=== PATIENT | male | born 1940 | race Caucasian/White ===

== ENCOUNTER 2018-09-03 13:12 | Day surgery (SDC) | payer MEDICARE, OTHER ==
[~2018-09-03] VITALS: Ht 170.2 cm; Wt 99.8 kg
[~2018-09-03 13:12] MED LIST: ALLO100; ALLO100 PO; ASCO500 PO; ASPI325 PO; ASPI325EC PO; ASPI81EC PO; ATOR40TA PO; Adult Low Dose81 MG PO; B Complex #11 EACH PO; BRILINTA; CARV6.25 PO; CHOL10002 PO; CLOP75 PO; Calcium Citrat250 MG PO; Coreg12.5 MG PO; DHEA25 MG PO; HYDACE5 PO; HYDCHL25; HYDCOR10; HYDMOR2 PO; IRON150C PO; KETO10 PO; LEVFLO500 PO; LOSA50; LOSA50 PO; MULTI VITAMIN1 EACH PO; MULVITMIND PO; MULVITMINF PO; OLME20-12. PO; OLME5TAB PO; OMEP20ER PO; POTCHL20ER; PROM25 PO; Percocet 5-3251 EACH PO; RANO500T PO; RXHYDACE PO; RXHYDMOR2 PO; SENNA-TIME S T1 EACH PO; SPIHYD PO; SPIR25 PO; Senna-Gen8.6 MG PO; Synthroid25 MCG PO; TAMS.4ER PO; VITAMENS; VITAMIN C500 M1 PO
== END 2018-09-03 15:53 | disposition home or self-care (01) ==
LOC: ORSCSDS 13:12
PROVIDERS: Internal Medicine Gastroenterology
PROC: 0DBL8ZX Excision of Transverse Colon, Via Natural or Artificial Opening Endoscopic, Diagnostic (ICD-10-PCS; principal; 2018-09-03 14:45)
DX: Z12.11 Encounter for screening for malignant neoplasm of colon (principal); Z86.010 Personal history of colon polyps; D12.3 Benign neoplasm of transverse colon; K57.30 Diverticulosis of large intestine without perforation or abscess without bleeding; E66.9 Obesity, unspecified; Z68.34 Body mass index [BMI] 34.0-34.9, adult; Z79.01 Long term (current) use of anticoagulants; Z79.899 Other long term (current) drug therapy
CPT/HCPCS: 88305; J2704; J7120

== ENCOUNTER 2019-03-09 00:39 | Observation (INO) | payer MEDICARE, OTHER ==
[~2019-03-09] VITALS: Ht 170.2 cm; Wt 96.4 kg
[~2019-03-09 00:39] MED LIST changes: -CHOL10002 PO; +VITAMIN D35000 UNI2 PO
[2019-03-09] MEDS ORDERED: MONT10T PO (01:13)
[2019-03-09] MEDS ORDERED: DOXY100 PO (01:14)
[2019-03-09] MEDS ORDERED: BENZ100A PO (01:15)
[2019-03-09 01:53] LABS: BASOPHILS ABSOLUTE AUTO 0.05 K/mm3 (0.00-0.23); BASOPHILS PERCENT AUTO 1 % (0-2); EOSINOPHILS PERCENT AUTO 4 % (0-6); Hematocrit 45.3 % (37.0-53.0); Hemoglobin 15.2 g/dL (13.5-17.5); IMMATURE GRAN ABSOLUTE AUTO 0.04 K/mm3 (0.00-0.10); IMMATURE GRAN PERCENT AUTO 1 % (0-1); LYMPHOCYTES ABSOLUTE AUTO 1.05 K/mm3 (0.84-5.20); LYMPHOCYTES PERCENT AUTO 12 % (21-46); MONOCYTES ABSOLUTE AUTO 1.15 K/mm3 (0.16-1.47); MONOCYTES PERCENT AUTO 13 % (4-13); Mean Corpuscular HGB 32.5 pg (26.0-34.0); Mean Corpuscular HGB Conc 33.6 g/dL (31.5-36.5); Mean Corpuscular Volume 97 fL (80-100); Mean Platelet Volume 10.1 fL (9.1-12.4); NEUTROPHILS ABSOLUTE AUTO 6.01 K/mm3 (1.96-9.15); NEUTROPHILS PERCENT AUTO 70 % (41-73); Platelet Count 210 K/mm3 (150-400); RDW Coefficient Variation 12.1 % (11.7-14.2); RDW Standard Deviation 43.7 fL (35.1-46.3); Red Blood Cell Count 4.68 M/mm3 (4.30-5.90)
[2019-03-09 02:13] LABS: Alanine Aminotransfer (ALT/SGP 29 U/L (12-78); Albumin, Blood 3.1 g/dL (3.4-5.0); Albumin/Globulin Ratio 0.8 (0.8-1.8); Alk Phos 62 U/L (50-136); Anion Gap 7 mmol/L (6-16); Aspartate Aminotrans (AST/SGOT 22 U/L (12-37); Bilirubin, Total 0.4 mg/dL (0.1-1.0); Blood Urea Nitrogen 20 mg/dL (8-24); Bun/Creatinine Ratio 18.2 (12.0-20.0); CO2, Blood 26 mmol/L (21-32); Calcium, Blood 8.3 mg/dL (8.5-10.1); Chloride, Blood 109 mmol/L (98-108); Globulin, Blood 3.7 g/dL (2.2-4.0); Glomerular Filtration Rate >60 (60-); Glucose, Blood 110 mg/dL (70-99); Potassium, Blood 4.3 mmol/L (3.5-5.5); Sodium, Blood 142 mmol/L (136-145); Total Protein, Blood 6.8 g/dL (6.4-8.2); Troponin I <0.015 ng/mL (0.000-0.040)
[2019-03-09] MEDS ORDERED: TESTONE CI200 MG/1 M IM (04:45)
[2019-03-09] MEDS ORDERED: ANAS1 PO (04:46)
--- NOTE | 2019-03-09 05:34 | NUR ---
SHIFT SUMMARY PT'S LS CLEAR T/O AND BT + X4. ROMEO ADMITTED FOR CHEST PAIN. HE STATED HIS CHEST PAIN MUCH IMPROVED AFTER NITRO AND MORPHINE IN THE ER. ALSO VERY SLEEPY AND APPEARS TO BE SLEEPING SINCE GETTING COMFORTABLE AND LEFT ALONE. LEFT TO GO HOME BUT WILL BE BACK LATER TODAY.
--- NOTE | 2019-03-09 18:40 | NUR ---
SHIFT SUMMARY PT INDEPENDENT IN TO BATHROOM. RESTING PORTION OF STRESS TEST COMPLETED TODAY. EXERTIONAL PORTION TO BE COMPLETED TOMORROW AND NO MORE CAFFEINE AFTER MIDNIGHT TONIGHT. WILL BE NOTIFIED OF TIME TOMORROW. FAMILY HERE MOST OF THE DAY. PT NAPPED BETWEEN LUNCH AND TESTING.
--- NOTE | 2019-03-10 05:34 | NUR ---
SHIFT SUMMARY NO ACUTE CHANGES TONIGHT. PT NPO/WATER AND CHIPS ONLY SINCE MIDNIGHT FOR 2NS PART STRESS TEST TODAY. DENIES CHEST PAIN OR DISCOMFORT. TROPONINS NEG. TELE IN PLACE; NSR @ 63. A&OX4, INDEPENDENT IN . WILL CONT TO MONITOR AND PROVIDE CARE UNTIL PRESUMED BY ONCOMING RN.
[2019-03-10] MEDS ORDERED: NITR.4SL SL (16:10)
--- NOTE | 2019-03-10 16:45 | NUR ---
DISCHARGE INSTRUCTIONS COMPLETED AND DISCUSSED WITH PT EXPRESSING UNDERSTANDING. SCRIPT FOR NITRO FAXED TO [facility]. TO [facility] VIA W/C.
== END 2019-03-10 16:25 | disposition home or self-care (01) ==
LOC: ER 00:39 → MEDS 00:40
PROVIDERS: Emergency Medicine; ADMIT Hospitalist
DX: R07.9 Chest pain, unspecified (principal); I25.10 Atherosclerotic heart disease of native coronary artery without angina pectoris; I11.0 Hypertensive heart disease with heart failure; I50.22 Chronic systolic (congestive) heart failure; I25.5 Ischemic cardiomyopathy; E78.5 Hyperlipidemia, unspecified; K21.9 Gastro-esophageal reflux disease without esophagitis; E03.9 Hypothyroidism, unspecified; I73.9 Peripheral vascular disease, unspecified; Z88.0 Allergy status to penicillin; Z88.8 Allergy status to other drugs, medicaments and biological substances; Z79.82 Long term (current) use of aspirin; Z79.02 Long term (current) use of antithrombotics/antiplatelets; Z79.52 Long term (current) use of systemic steroids; Z79.2 Long term (current) use of antibiotics; Z79.899 Other long term (current) drug therapy; Z95.1 Presence of aortocoronary bypass graft; Z95.5 Presence of coronary angioplasty implant and graft
CPT/HCPCS: 36415; 71046; 78452; 80053; 83880; 84484; 85025; 93005; 93010; 93017; 96372; 96374; 99285-25; A9500; G0378; J0706; J1650; J2270; J2785

== ENCOUNTER 2019-04-01 02:00 | Inpatient (IN) | payer MEDICARE, OTHER ==
[~2019-04-01] VITALS: Ht 172.7 cm; Wt 98.2 kg
[~2019-04-01 02:00] MED LIST changes: +ANAS1 PO; +BENZ100A PO; +DOXY100 PO; +MONT10T PO; +NITR.4SL SL; +TESTONE CI200 MG/1 M IM
[2019-04-01] MEDS ORDERED: FAMO20 PO (02:31)
[2019-04-01] MEDS ORDERED: Depo-Testos200 MG/ML IM (02:34)
[2019-04-01 02:42] LABS: BASOPHILS ABSOLUTE AUTO 0.03 K/mm3 (0.00-0.23); BASOPHILS PERCENT AUTO 0 % (0-2); EOSINOPHILS ABSOLUTE AUTO 0.18 K/mm3 (0.00-0.68); EOSINOPHILS PERCENT AUTO 2 % (0-6); Hematocrit 44.7 % (37.0-53.0); Hemoglobin 15.4 g/dL (13.5-17.5); IMMATURE GRAN ABSOLUTE AUTO 0.05 K/mm3 (0.00-0.10); IMMATURE GRAN PERCENT AUTO 0 % (0-1); LYMPHOCYTES ABSOLUTE AUTO 0.92 K/mm3 (0.84-5.20); LYMPHOCYTES PERCENT AUTO 8 % (21-46); MONOCYTES ABSOLUTE AUTO 2.05 K/mm3 (0.16-1.47); MONOCYTES PERCENT AUTO 18 % (4-13); Mean Corpuscular HGB 32.8 pg (26.0-34.0); Mean Corpuscular HGB Conc 34.5 g/dL (31.5-36.5); Mean Corpuscular Volume 95 fL (80-100); NEUTROPHILS ABSOLUTE AUTO 8.26 K/mm3 (1.96-9.15); NEUTROPHILS PERCENT AUTO 72 % (41-73); Platelet Count 142 K/mm3 (150-400); RDW Coefficient Variation 12.9 % (11.7-14.2); RDW Standard Deviation 45.2 fL (35.1-46.3); Red Blood Cell Count 4.69 M/mm3 (4.30-5.90); White Blood Cell Count 11.49 K/mm3 (4.00-11.30)
[2019-04-01 03:03] LABS: Alanine Aminotransfer (ALT/SGP 17 U/L (12-78); Albumin, Blood 3.1 g/dL (3.4-5.0); Albumin/Globulin Ratio 0.9 (0.8-1.8); Alk Phos 58 U/L (50-136); Anion Gap 6 mmol/L (6-16); Aspartate Aminotrans (AST/SGOT 20 U/L (12-37); Bilirubin, Total 0.5 mg/dL (0.1-1.0); Blood Urea Nitrogen 20 mg/dL (8-24); Bun/Creatinine Ratio 17.2 (12.0-20.0); CO2, Blood 26 mmol/L (21-32); Calcium, Blood 8.1 mg/dL (8.5-10.1); Chloride, Blood 106 mmol/L (98-108); Creatinine, Blood 1.16 mg/dL (0.60-1.20); Globulin, Blood 3.5 g/dL (2.2-4.0); Glomerular Filtration Rate >60 (60-); Glucose, Blood 140 mg/dL (70-99); Potassium, Blood 4.3 mmol/L (3.5-5.5); Sodium, Blood 138 mmol/L (136-145); Total Protein, Blood 6.6 g/dL (6.4-8.2); Troponin I 0.023 ng/mL (0.000-0.040)
--- NOTE | 2019-04-01 06:17 | NUR ---
ARRIVAL PT ARRIVED TO UNIT VIA GURNEY FROM ER. TRANSFERED SELF TO BED IND. DENIES PAIN AT THIS TIME IN RUQ. STATES SOME PAIN WHEN PALPATED FIRMLY. PT REPORTS BEING NPO SINCE 1800 ON 03/31/19. NPO SINCE ARRIVAL TO UNIT. PT AND SPOUSE ORIENTED TO UNIT. CALL LIGHT IN REACH.
--- NOTE | 2019-04-01 11:40 | NUR ---
PT TO IMAGING VIA W/C
--- NOTE | 2019-04-01 15:15 | NUR ---
eCHOCARDIOGRAM USING O.50ML OF DEFINITY CONTRAST PERFORMED.
--- NOTE | 2019-04-01 16:25 | NUR ---
SHIFT SUMMARY PT STRUGGLED WITH PAIN MANAGEMENT PRIOR TO HIDA SCAN DUE TO NO NARCOTICS. POST SCAN, PT GIVEN IV MORPHINE WITH MINIMAL RELIEF. MD CALLED, NEW ORDERS RECIEVED AND PAIN IS AT A MANAGEABLE LEVEL NOW. ECHO COMPLETED, AWAITING RESULTS SO CLEAR LIQUIDS STARTED.
[2019-04-02 04:06] LABS: BASOPHILS ABSOLUTE AUTO 0.04 K/mm3 (0.00-0.23); BASOPHILS PERCENT AUTO 0 % (0-2); EOSINOPHILS ABSOLUTE AUTO 0.07 K/mm3 (0.00-0.68); EOSINOPHILS PERCENT AUTO 1 % (0-6); Hematocrit 47.7 % (37.0-53.0); Hemoglobin 15.7 g/dL (13.5-17.5); IMMATURE GRAN ABSOLUTE AUTO 0.08 K/mm3 (0.00-0.10); IMMATURE GRAN PERCENT AUTO 1 % (0-1); LYMPHOCYTES ABSOLUTE AUTO 0.81 K/mm3 (0.84-5.20); LYMPHOCYTES PERCENT AUTO 6 % (21-46); MONOCYTES ABSOLUTE AUTO 2.32 K/mm3 (0.16-1.47); MONOCYTES PERCENT AUTO 16 % (4-13); Mean Corpuscular HGB 32.1 pg (26.0-34.0); Mean Corpuscular HGB Conc 32.9 g/dL (31.5-36.5); Mean Platelet Volume 11.1 fL (9.1-12.4); NEUTROPHILS ABSOLUTE AUTO 10.97 K/mm3 (1.96-9.15); NEUTROPHILS PERCENT AUTO 77 % (41-73); Platelet Count 140 K/mm3 (150-400); RDW Standard Deviation 45.9 fL (35.1-46.3); Red Blood Cell Count 4.89 M/mm3 (4.30-5.90); White Blood Cell Count 14.29 K/mm3 (4.00-11.30)
[2019-04-02 04:07] LABS: Mean Corpuscular Volume 98 fL (80-100)
--- NOTE | 2019-04-02 04:30 | NUR ---
SHIFT SUMMARY PT IS A/O X4 AND IND. IN ROOM. HAS BEEN NPO AFTER MIDNIGHT. HE HAS BEEN RESTING WITH EYES CLOSED MOST OF THE SHIFT. PT IS VOIDING. REPORTS ABD TENDERNESS WITH PALPATION. PAIN MANAGED WITH IV PAIN MED PER ORDERS. ASSISTED WITH ADL'S PRN.
[2019-04-02 04:32] LABS: Alanine Aminotransfer (ALT/SGP 14 U/L (12-78); Albumin, Blood 2.9 g/dL (3.4-5.0); Albumin/Globulin Ratio 0.9 (0.8-1.8); Alk Phos 45 U/L (50-136); Anion Gap 9 mmol/L (6-16); Aspartate Aminotrans (AST/SGOT 10 U/L (12-37); Blood Urea Nitrogen 16 mg/dL (8-24); CO2, Blood 24 mmol/L (21-32); Calcium, Blood 7.8 mg/dL (8.5-10.1); Chloride, Blood 107 mmol/L (98-108); Creatinine, Blood 1.14 mg/dL (0.60-1.20); Globulin, Blood 3.2 g/dL (2.2-4.0); Glomerular Filtration Rate >60 (60-); Glucose, Blood 102 mg/dL (70-99); Potassium, Blood 4.1 mmol/L (3.5-5.5); Sodium, Blood 140 mmol/L (136-145); Total Protein, Blood 6.1 g/dL (6.4-8.2)
--- NOTE | 2019-04-02 11:11 | NUR ---
Patient up to Ambulate independently. Gait steady. Surgical site prepped with 2% Chlorhexidine cloth wipe. History, Chart, Medications and Allergies reviewed before start of procedure.Lungs clear T/O to Auscultation. Patient confirms NPO status and agrees with scheduled surgery. ALL BELONINGS LEFT INTO ROOM.
--- NOTE | 2019-04-02 13:30 | NUR ---
PATIENT RETURNED TO ROOM FROM PACU. AWAKE, SBA TO TRANSFER FROM [facility] TO BED. VSS. ABD WITH GAUZE DRESSINGS X 3. KARAN DRAIN WITH SCANT AMOUNT SS FLUID R ABD. PATIENT DENIES PAIN, NAUSEA. LS CLEAR, HRR. PAS IN PLACE. FAMILY AT BEDSIDE. CONT TO MONITOR.
--- NOTE | 2019-04-02 15:30 | NUR ---
VSS. PATIENT DOZING, AWAKENS WITH CARE. CONT DENY PAIN. TAKING CL W/O C/O NAUSEA. IS GIVEN WITH INSTRUCTIONS. CONT TO MONITOR.
--- NOTE | 2019-04-02 18:21 | NUR ---
SHIFT SUMMARY PATIENT CONT DENY NEED FOR PAIN MED. DRESSING TO KARAN DRAIN CHANGED. KARAN DRAIN WITH SMALL AMOUNT SS FLUID. TAKING PO W/O C/O. HAS DENIED NEED TO URINATE, ENCOURAGED TO CALL FOR ASSIST BEFORE GETTING OOB. AT BEDSIDE. CONT TO MONITOR. VSS.
--- NOTE | 2019-04-03 03:50 | NUR ---
SHIFT SUMMARY PT RESTED QUIETLY IN BED T/O SHIFT W/OUT ANY ACUTE CHANGES. MEPILEX TO BUTTOCKS C/D/I. ASSISTED WITH ADL'S NEEDED. CURRENTLY RESTING IN BED, HAS CPAP IN PLACE W/ SPO2 AT 93% AND CALL LIGHT WITHIN REACH. PLAN FOR D/C DURING DAY SHIFT TODAY. WILL CONT. TO MONITOR AND GIVE REPORT TO ONCOMING RN AT SHIFT CHANGE.
--- NOTE | 2019-04-03 04:24 | NUR ---
SHIFT ASSESSMENT POD 1 S/P CHOLECTOMY, A/0X4 WITH VSS. KARAN DRAIN IN PLACE AND DRAINING SS. TOLERATING REGULAR DIET. UP TO EDGE OF BED AND USING URINAL. PAIN MANAGED WITH 1 TAB PO MEDICATION. CURRENTLY RESTING IN BED WITH CALL LIGHT IN REACH. WILL CONT. TO MONITOR AND PLAN TO GIVE REPORT TO ONCOMING RN AT SHIFT CHANGE.
[2019-04-03] MEDS ORDERED: Augmentin 875-1 EACH PO (11:14)
[2019-04-03] MEDS ORDERED: ROXYBOND5 MG PO (13:14)
--- NOTE | 2019-04-03 13:30 | NUR ---
DISCHARGE SUMMARY PT A&OX4, VSS, POD1 LAP BELLA, 3 LAP SITES CDI. PAIN MANAGED WITH 5 MG OXYCODONE PRN. KATIE PO, DENIES N&V. VOIDING WELL. DISCHARGE INSTRUCTIONS PROVIDED. PT REP UNDERSTANDING THOSE INSTRUCTIONS INCLUDING FU WITH SURGEON IN 2 WEEKS, FU WITH PCP IN 1 WK, [facility] WILL COME OFF ON THEIR OWN IN 7-10 DAYS OR [facility] WILL REMOVE AT FU APPT, OK TO SHOWER, NO TUB/JACUZZI/SWIMMING, ABX BID FOR 10 TABS FAXED TO [facility], SCRIPT FOR OXY PROVIDED TO PT.
== END 2019-04-03 13:48 | disposition home or self-care (01) | DRG 418 ==
LOC: ER 02:00 → SURS 05:46
PROVIDERS: Emergency Medicine; Surgery; ADMIT Hospitalist
PROC: 0FT44ZZ Resection of Gallbladder, Percutaneous Endoscopic Approach (ICD-10-PCS; principal; 2019-04-02 11:30)
DX: K80.00 Calculus of gallbladder with acute cholecystitis without obstruction (principal); I50.22 Chronic systolic (congestive) heart failure; I25.10 Atherosclerotic heart disease of native coronary artery without angina pectoris; I11.0 Hypertensive heart disease with heart failure; E03.9 Hypothyroidism, unspecified; E78.5 Hyperlipidemia, unspecified; K21.9 Gastro-esophageal reflux disease without esophagitis; Z95.1 Presence of aortocoronary bypass graft; Z95.5 Presence of coronary angioplasty implant and graft; Z79.82 Long term (current) use of aspirin; Z79.02 Long term (current) use of antithrombotics/antiplatelets; Z88.0 Allergy status to penicillin
CPT/HCPCS: 36415; 76705; 78226; 80053; 83690; 84484; 85025; 88304; 93005; 93010; 96365; 96375; 99285-25; A9270; A9270-GY; A9537; C1729; C8929; J0330; J0696; J0744; J1100; J1170; J2250; J2270; J2370; J2405; J2704; J3010; J7030; J7120; Q9957

== ENCOUNTER 2023-05-19 17:49 | Emergency (ER) | payer MEDICARE, OTHER ==
[~2023-05-19] VITALS: Ht 167.6 cm; Wt 90.7 kg
[~2023-05-19 17:49] MED LIST changes: +Augmentin 875-1 EACH PO; +Depo-Testos200 MG/ML IM; +FAMO20 PO; +ROXYBOND5 MG PO; -VITAMIN C500 M1 PO; +VITAMIN D310 MC4 PO; -VITAMIN D35000 UNI2 PO
[2023-05-19] MEDS ORDERED: Acetaminophen 325 MG TABLET PO ONE (18:55)
[2023-05-19] MEDS ORDERED: Lactated Ringer's 1,000 ML IV SCH (18:55)
[2023-05-19 19:00] LABS: BASOPHILS ABSOLUTE AUTO 0.04 K/mm3 (0.00-0.23); BASOPHILS PERCENT AUTO 0 % (0-2); EOSINOPHILS PERCENT AUTO 0 % (0-6); Hematocrit 39.5 % (37.0-53.0); Hemoglobin 13.8 g/dL (13.5-17.5); IMMATURE GRAN ABSOLUTE AUTO 0.14 K/mm3 (0.00-0.10); IMMATURE GRAN PERCENT AUTO 1 % (0-1); LYMPHOCYTES ABSOLUTE AUTO 0.42 K/mm3 (0.84-5.20); LYMPHOCYTES PERCENT AUTO 3 % (21-46); MONOCYTES ABSOLUTE AUTO 2.09 K/mm3 (0.16-1.47); MONOCYTES PERCENT AUTO 13 % (4-13); Mean Corpuscular HGB 32.2 pg (26.0-34.0); Mean Corpuscular HGB Conc 34.9 g/dL (31.5-36.5); Mean Corpuscular Volume 92 fL (80-100); Mean Platelet Volume 12.6 fL (9.1-12.4); NEUTROPHILS ABSOLUTE AUTO 13.98 K/mm3 (1.96-9.15); NEUTROPHILS PERCENT AUTO 84 % (41-73); Platelet Count 106 K/mm3 (150-400); RDW Coefficient Variation 12.8 % (11.7-14.2); RDW Standard Deviation 43.5 fL (35.1-46.3); Red Blood Cell Count 4.29 M/mm3 (4.30-5.90); White Blood Cell Count 16.67 K/mm3 (4.00-11.30)
[2023-05-19 19:14] LABS: Albumin, Blood 3.3 g/dL (3.4-5.0); Albumin/Globulin Ratio 1.1 (0.8-1.8); Bilirubin, Total 1.6 mg/dL (0.1-1.0); Bun/Creatinine Ratio 20.1 (12.0-20.0); Calcium, Blood 8.7 mg/dL (8.5-10.1); Creatinine, Blood 1.89 mg/dL (0.60-1.20); Globulin, Blood 3.1 g/dL (2.2-4.0); Magnesium, Blood 1.8 mg/dL (1.6-2.4); Potassium, Blood 4.1 mmol/L (3.5-5.5); Total Protein, Blood 6.4 g/dL (6.4-8.2)
[2023-05-19 19:19] LABS: Influenza A, PCR NEGATIVE (NEGATIVE); Influenza B, PCR NEGATIVE (NEGATIVE); Resp Syncytial Virus, PCR NEGATIVE (NEGATIVE); SARS-Cov-2 (COVID-19) PCR, MMC NEGATIVE (NEGATIVE)
[2023-05-19 20:11] LABS: Source, Urine Clean Catch
[2023-05-19 20:32] LABS: Blood, Urine 4+ (Neg); Glucose Qualitative, Urine Neg (Neg); Ketones, Urine 1+ (Neg); Leukocyte Esterase, Urine 3+ (Neg); Nitrite, Urine Neg (Neg); Protein, Urine 3+ (Neg); Specific Gravity, Urine 1.025 (1.003-1.022); Urobilinogen, Urine NORM (Normal)
[2023-05-19 20:33] LABS: Bilirubin, Urine 1+ (Neg)
[2023-05-19 20:34] LABS: Appearance, Urine Turbid (Clear); Color, Urine Yellow (P-Yellow)
[2023-05-19 20:42] LABS: Bacteria Many /hpf; Squamous Epithelial Cells Rare /hpf (Few); White Blood Cells, Urine TNTC /hpf (0-5)
[2023-05-19] MEDS ORDERED: CefTRIAXone Sodium 1,000 MG in NS 50 ML IV ONE (20:50)
[2023-05-19 23:15] VITALS: BP 115/52
[2023-05-19] MEDS ORDERED: CEFP200 PO (23:16)
[2023-05-19] MEDS ORDERED: ONDA4ODT MM (23:17)
== END 2023-05-19 23:30 | disposition home or self-care (01) ==
LOC: ER 17:49
PROVIDERS: Student in an Organized Health Care Education/Training Program
DX: A41.9 Sepsis, unspecified organism (principal); N39.0 Urinary tract infection, site not specified; N17.9 Acute kidney failure, unspecified; E86.0 Dehydration; I95.9 Hypotension, unspecified; I25.2 Old myocardial infarction; Z88.0 Allergy status to penicillin; Z88.8 Allergy status to other drugs, medicaments and biological substances; Z79.890 Hormone replacement therapy; Z79.899 Other long term (current) drug therapy; Z79.02 Long term (current) use of antithrombotics/antiplatelets; Z79.82 Long term (current) use of aspirin
CPT/HCPCS: 0241U; 36415; 71045; 80053; 81001; 83605; 83735; 84145; 85025; 93005; 93010; 96361; 96365; 99285-25; A9270; J0696; J7120

== ENCOUNTER → 2025-02-12 | Outpatient (CLI) | payer MEDICARE, OTHER ==
[~2025-02-12] MED LIST changes: +CEFP200 PO; +ONDA4ODT MM
[2025-02-12 11:24] LABS: BASOPHILS ABSOLUTE AUTO 0.04 K/mm3 (0.00-0.23); BASOPHILS PERCENT AUTO 1 % (0-2); EOSINOPHILS ABSOLUTE AUTO 0.17 K/mm3 (0.00-0.68); EOSINOPHILS PERCENT AUTO 3 % (0-6); Hematocrit 44.7 % (37.0-53.0); Hemoglobin 15.5 g/dL (13.5-17.5); IMMATURE GRAN ABSOLUTE AUTO 0.09 K/mm3 (0.00-0.10); IMMATURE GRAN PERCENT AUTO 1 % (0-1); LYMPHOCYTES ABSOLUTE AUTO 0.94 K/mm3 (0.84-5.20); LYMPHOCYTES PERCENT AUTO 14 % (21-46); MONOCYTES ABSOLUTE AUTO 1.05 K/mm3 (0.16-1.47); MONOCYTES PERCENT AUTO 16 % (4-13); Mean Corpuscular HGB Conc 34.7 g/dL (31.5-36.5); Mean Corpuscular Volume 95 fL (80-100); NEUTROPHILS ABSOLUTE AUTO 4.24 K/mm3 (1.96-9.15); NEUTROPHILS PERCENT AUTO 65 % (41-73); NRBC ABSOLUTE 0.00 K/mm3 (0.00-0.02); NRBC Auto 0.0 /100 WBC (0.0-0.2); RDW Coefficient Variation 13.4 % (11.7-14.2); RDW Standard Deviation 47.1 fL (35.1-46.3)
[2025-02-12 11:25] LABS: Platelet Count 129 K/mm3 (150-400)
[2025-02-12 11:53] LABS: Alanine Aminotransfer (ALT/SGP 25.0 U/L (12-78); Albumin, Blood 3.4 g/dL (3.4-5.0); Albumin/Globulin Ratio 1.1 (0.8-1.8); Anion Gap 9.0 mmol/L (3-11); Aspartate Aminotrans (AST/SGOT 18.0 U/L (12-37); Bilirubin, Total 1.0 mg/dL (0.1-1.0); Blood Urea Nitrogen 19.0 mg/dL (8-24); CO2, Blood 27.0 mmol/L (21-32); Calcium, Blood 8.3 mg/dL (8.5-10.1); Chloride, Blood 107.0 mmol/L (98-108); Creatinine, Blood 1.34 mg/dL (0.60-1.20); Globulin, Blood 3.2 g/dL (2.2-4.0); Glucose, Blood 99.0 mg/dL (70-99); Potassium, Blood 4.3 mmol/L (3.5-5.5); Sodium, Blood 139.0 mmol/L (136-145); Total Protein, Blood 6.6 g/dL (6.4-8.2)
== END ==
LOC: LAB SHORT 11:01 → LAB 11:01
DX: R06.02 Shortness of breath (principal)
CPT/HCPCS: 80053; 84484; 85025